=== PATIENT | female | born 1945 | race Two or more races ===

== ENCOUNTER 2016-06-08 07:15 | Day surgery (SDC) | payer OTHER, BC ==
[2016-06-02 11:18] VITALS: BMI 17.7
[2016-06-08] MEDS ORDERED: PROPOFOL 20 ML ONE (07:54)
[2016-06-08] MEDS ORDERED: LIDOCAINE HCL/PF 2% SDV 5ML VIAL ONE (07:54)
[2016-06-08] MEDS ORDERED: MIDAZOLAM HCL 2 MG/2 ML SINGLE DOSE VIAL ONE (08:16)
[2016-06-08] MEDS ORDERED: ONDANSETRON 4 MG/2 ML VIAL ONE (08:49)
[2016-06-08] MEDS ORDERED: KETOROLAC TROMETHAMINE 30 MG/1 ML VIAL ONE (08:49)
[2016-06-08] MEDS ORDERED: ONDANSETRON 4 MG/2 ML VIAL IVPUSH PRN (09:11)
[2016-06-08] MEDS ORDERED: ACETAMINOPHEN 325 MG TABLET (FP) PO PRN (09:11)
[2016-06-08] MEDS ORDERED: oxyCODONE HCL 5 MG TABLET PO PRN (09:11)
[2016-06-08] MEDS ORDERED: LACTATED RINGERS SOLUTION 1,000 ML IV SCH (09:15)
--- NOTE | 2016-06-08 10:24 | OP ---
DATE OF OPERATION: 06/08/2016 PREOPERATIVE DIAGNOSIS: Right thumb mass. POSTOPERATIVE DIAGNOSIS: Right thumb mass. OPERATIVE PROCEDURE: Right thumb mass excision. SURGEON: Tiana Smith MD ANESTHESIA: Local with sedation. COMPLICATIONS: None. ESTIMATED BLOOD LOSS: Minimal. INDICATIONS: The patient is a 71-year-old female with the above findings, indicated for operative treatment. The risks, benefits, and alternatives were discussed with the patient at length. Proper informed consent was obtained. PROCEDURE: After proper identification of the patient and the correct operative site, the patient was brought to the operating room and placed supine on the operating room table. Prominences were well padded. Sedation was given by the anesthesiologist. Local anesthesia was given with 2% lidocaine. Right upper extremity was prepped and draped in the usual sterile fashion. A well-padded tourniquet was placed with a sterile prep. Esmarch bandage was used to exsanguinate the right upper extremity. Tourniquet was inflated to 250 mmHg. A cinthya-Perfecto incision was made over the right thumb. Incision was taken sharply through the skin with blunt and sharp dissection of subcutaneous tissues. Digital marrow was carefully identified and protected. Mass was found to be a cystic structure emanating from the flexor tendon sheath and was excised in whole and sent for pathologic evaluation. Wound was irrigated with saline and repaired with a 5-0 nylon suture. Sterile dressings were applied. Patient was reversed from anesthesia and brought to the recovery room in stable condition. She tolerated the procedure well. TIANA SMITH M.D. LATRICE/[id number]
[2016-06-08 10:55] VITALS: BP 154/81; PULSE 80; TEMP 98.7
--- NOTE | 2016-06-09 13:37 | PATH ---
Surgical Pathology Report Patient Name: CARMEN GEORGE [facility]. Rec. #: [id number] /Age/Gender: 1945 (Age: 71) / F Account: [id number] Location: [facility] AMBULATORY Taken: 06/08/2016 Received: 06/08/2016 Reported: 06/09/2016 Physicians: Geo Irwin M.D. Specimen(s) Received RIGHT THUMB MASS Clinical History Right thumb mass Final Diagnosis SOFT TISSUE, RIGHT THUMB, EXCISION: GANGLION CYST. Electronically Signed Fan Amador M.D. Gross Description Received in formalin labeled "right thumb excision," is a 1.3 x 0.7 x 0.5 cm weathers, intact mass containing mucinous material. The specimen is trisected and entirely submitted in one cassette. /06/08/201606/08/2016
== END 2016-06-08 10:35 | disposition home or self-care (01) ==
LOC: FASU 07:15
PROVIDERS: ATTEND Orthopaedic Surgery Hand Surgery
PROC: 0JBJ0ZX Excision of Right Hand Subcutaneous Tissue and Fascia, Open Approach, Diagnostic (ICD-10-PCS; principal; 2016-06-08 08:45)
DX: M67.48 Ganglion, other site (principal)
CPT/HCPCS: 88304-TC; 94760